=== PATIENT | male | born 1970 | race Caucasian/White ===

== ENCOUNTER 2016-11-12 06:48 | Observation (INO) | payer OTHER ==
[~2016-11-12] VITALS: Ht 198.1 cm; Wt 187.7 kg
[~2016-11-12 06:48] MED LIST: BACITRACIN 50,000 UNIT ONE; BUPIVACAINE/PF 0.25% ONE; BUPIVACAINE/PF-EPI 0.25% 1:200K ONE; THROMBIN 5,000 UNIT VIAL TP ONE
[2016-11-12 07:46] VITALS: BP 135/85
[2016-11-12] MEDS ORDERED: METF500T4 PO (08:01)
[2016-11-12] MEDS ORDERED: HYDR-3307 PO (08:01)
[2016-11-12] MEDS ORDERED: LISI40TA PO (08:01)
[2016-11-12] MEDS ORDERED: LIDOCAINE 1%, 2ML ONE (08:06)
[2016-11-12] MEDS ORDERED: MIDAZOLAM 1 MG/ML, 2ML ONE (09:11)
[2016-11-12] MEDS ORDERED: FENTANYL PF 250 MCG/5ML ONE (09:11)
[2016-11-12] MEDS ORDERED: ROCURONIUM 10 MG/ML ONE (10:20)
[2016-11-12] MEDS ORDERED: DEXAMETHASONE 4 MG/ML, 1ML ONE (10:20)
[2016-11-12] MEDS ORDERED: ONDANSETRON 2MG/ML, 2ML ONE (10:20)
[2016-11-12] MEDS ORDERED: PROPOFOL 10 MG/ML, 20ML ONE (10:20)
[2016-11-12] MEDS ORDERED: CEFAZOLIN 1,000 MG ONE (10:20)
[2016-11-12] MEDS ORDERED: SUCCINYLCHOLINE 20 MG/ML, 10ML ONE (10:20)
[2016-11-12] MEDS ORDERED: FENTANYL PF 100 MCG/2ML ONE ×2 (11:32→12:41)
[2016-11-12] MEDS ORDERED: FENTANYL PF 100 MCG/2ML EPIDPUSH ONE (11:34)
[2016-11-12] MEDS ORDERED: BUPIVACAINE/PF 0.25% EPIDPUSH ONE (11:36)
[2016-11-12] MEDS ORDERED: NS + 20MEQ KCL 1,000 ML IV SCH (12:30)
[2016-11-12] MEDS ORDERED: ONDANSETRON 2MG/ML, 2ML IVPush PRN ×3 (12:30→13:00)
[2016-11-12] MEDS ORDERED: HYDROcodone/APAP 10/325 MG TABLET PO PRN (12:30)
[2016-11-12] MEDS ORDERED: BISACODYL 10 MG SUPP PR PRN (12:30)
[2016-11-12] MEDS ORDERED: DIPHENHYDRAMINE 50 MG/ML, 1ML IVPush PRN (12:30)
[2016-11-12] MEDS ORDERED: METHOCARBAMOL 750 MG TABLET PO PRN (12:30)
[2016-11-12] MEDS ORDERED: PHARMACY MAY ADJ FOR RENAL FX MC PRN (12:30)
[2016-11-12] MEDS ORDERED: HYDROcodone/APAP 5/325 TABLET PO PRN (12:30)
[2016-11-12] MEDS ORDERED: SENNA/DOCUSATE TABLET PO PRN (12:30)
[2016-11-12] MEDS ORDERED: PROMETHAZINE 25 MG/ML, 1ML IM PRN (12:30)
[2016-11-12] MEDS ORDERED: HYDROmorphone 2 MG/ML, 1ML ONE (12:41)
[2016-11-12] MEDS ORDERED: ACETAMINOPHEN 650 MG/20.3 ML UDC ONE (12:41)
[2016-11-12] MEDS ORDERED: OXYcodone 5 MG/5 ML ORAL.SOL UDC ONE (12:42)
[2016-11-12] MEDS ORDERED: METOCLOPRAMIDE 5 MG/ML, 2ML IV PRN (13:00)
[2016-11-12] MEDS ORDERED: HYDROmorphone 1 MG/ML, 1ML IV PRN ×2 (13:00)
[2016-11-12] MEDS ORDERED: hydrALAzine 20 MG/ML, 1ML IV PRN ×2 (13:00)
[2016-11-12] MEDS ORDERED: ACETAMINOPHEN 325 MG TABLET PO PRN ×2 (13:00)
[2016-11-12] MEDS ORDERED: LABETALOL 5MG/ML, 20ML IV PRN (13:00)
[2016-11-12] MEDS ORDERED: LABETALOL 20 MG/4 ML IV PRN (13:00)
[2016-11-12] MEDS ORDERED: OXYcodone 5 MG/5 ML ORAL.SOL UDC PO PRN ×2 (13:00)
[2016-11-12] MEDS ORDERED: PLEASE ENTER ALLERGIES MC SCH ×2 (13:00)
[2016-11-12] MEDS ORDERED: FENTANYL PF 100 MCG/2ML IV PRN ×2 (13:00)
[2016-11-12] MEDS: CYCLOBENZAPRINE 10 MG TABLET PO PRN ×2 (14:43→23:12)
[2016-11-12] MEDS: morphine SULFATE 10 MG/ML, 1ML IVPush PRN ×2 (15:16→15:50)
[2016-11-12] MEDS: OXYcodone/APAP 5/325MG TABLET PO PRN ×2 (16:35→20:40)
[2016-11-12] MEDS: CEFAZOLIN PMX 1GM/50ML 50 ML IVPB SCH (18:40)
[2016-11-12 19:05] VITALS: BP 95/43
[2016-11-12] MEDS ORDERED: SODIUM CHLORIDE FLUSH 10ML SYR IVF SCH (21:00)
[2016-11-13 00:03] VITALS: BP 116/76
[2016-11-13] MEDS: OXYcodone/APAP 5/325MG TABLET PO PRN ×3 (00:36→09:03)
[2016-11-13] MEDS: CEFAZOLIN PMX 1GM/50ML 50 ML IVPB SCH (02:20)
[2016-11-13 04:00] VITALS: BP 124/71
[2016-11-13 06:32] VITALS: BP 106/70
[2016-11-13] MEDS ORDERED: CYCL5TAB PO (08:54)
[2016-11-13] MEDS ORDERED: CEPH-368 PO (08:55)
[2016-11-13] MEDS ORDERED: LISINOPRIL 20 MG TABLET PO SCH (09:00)
[2016-11-13] MEDS ORDERED: metFORMIN 500 MG TABLET PO SCH (09:00)
[2016-11-13] MEDS: CYCLOBENZAPRINE 10 MG TABLET PO PRN (09:03)
[2016-11-13] MEDS: morphine SULFATE 10 MG/ML, 1ML IVPush PRN (09:04)
== END 2016-11-13 09:40 | disposition home or self-care (01) ==
LOC: OUT 06:48 → 4NOR 13:40 → OUT 23:04 → 4NOR 23:04
PROVIDERS: ADMIT Neurological Surgery; ATTEND Neurological Surgery
DX: M51.16 Intervertebral disc disorders with radiculopathy, lumbar region (principal); E66.01 Morbid (severe) obesity due to excess calories; M48.00 Spinal stenosis, site unspecified; Z68.42 Body mass index [BMI] 45.0-49.9, adult
CPT/HCPCS: 63030; 63035; 72100; 82962; 96365; 96375; 96376; C1751; G0378; J0330; J0690; J1100; J1170; J2250; J2270; J2405; J2704; J3010; J3490

== ENCOUNTER 2019-07-27 09:58 | Inpatient (IN) | payer BC ==
[~2019-07-27] VITALS: Ht 198.1 cm; Wt 163.0 kg
[~2019-07-27 09:58] MED LIST changes: +BUPIVACAINE 0.25% ONE; -BUPIVACAINE/PF 0.25% ONE; +BUPIVACAINE/PF 0.5% ONE; -BUPIVACAINE/PF-EPI 0.25% 1:200K ONE; +CEPH-368 PO; +CYCL5TAB PO; +EPINEPHRINE 1 MG/ML, 1ML ONE; +HYDR-36 PO; +LISI40TA PO; +METF500T17 PO; -THROMBIN 5,000 UNIT VIAL TP ONE; +VANCOMYCIN 1,000 MG ONE
[2019-07-27] MEDS ORDERED: LACTATED RINGERS 1,000 ML IV SCH (10:33)
[2019-07-27] MEDS ORDERED: SCOPOLAMINE PATCH, 1.5MG PATCH.TD72 TD ONE (11:00)
[2019-07-27] MEDS ORDERED: GABAPENTIN 300 MG CAPSULE PO ONE (11:00)
[2019-07-27] MEDS ORDERED: ACETAMINOPHEN 500 MG TABLET PO ONE (11:00)
[2019-07-27] MEDS ORDERED: MIDAZOLAM 1 MG/ML, 2ML ONE (11:10)
[2019-07-27] MEDS ORDERED: FENTANYL PF 250 MCG/5ML ONE ×2 (11:11→13:21)
[2019-07-27] MEDS ORDERED: PROPOFOL 10 MG/ML, 20ML ONE (12:37)
[2019-07-27] MEDS ORDERED: CEFAZOLIN 1,000 MG ONE (12:37)
[2019-07-27] MEDS ORDERED: SUCCINYLCHOLINE 20 MG/ML, 10ML ONE (12:37)
[2019-07-27] MEDS ORDERED: ROCURONIUM 10MG/ML,5ML ONE (12:37)
[2019-07-27] MEDS ORDERED: ONDANSETRON 2MG/ML, 2ML ONE (12:37)
[2019-07-27] MEDS ORDERED: KETAMINE 10 MG/ML, 20ML ONE (13:21)
[2019-07-27] MEDS ORDERED: BUPIVACAINE LIPOSOME/PF 10ML INFIL ONE (13:26)
[2019-07-27] MEDS ORDERED: ONDANSETRON 2MG/ML, 2ML IVPush PRN (13:30)
[2019-07-27] MEDS ORDERED: METOCLOPRAMIDE 5 MG/ML, 2ML IV PRN (13:30)
[2019-07-27] MEDS ORDERED: OXYcodone 5 MG/5 ML ORAL.SOL UDC PO PRN (13:30)
[2019-07-27] MEDS ORDERED: LABETALOL 5MG/ML, 20ML IV PRN ×2 (13:30→17:30)
[2019-07-27] MEDS ORDERED: KETOROLAC 30 MG/1 ML IV PRN (13:30)
[2019-07-27] MEDS ORDERED: HYDROmorphone 1 MG/ML, 1ML INJ IV PRN (13:30)
[2019-07-27] MEDS ORDERED: DIAZEPAM 5 MG/ML, 2ML IV PRN ×2 (13:30)
[2019-07-27] MEDS ORDERED: FENTANYL PF 100 MCG/2ML IV PRN (13:30)
[2019-07-27] MEDS ORDERED: ALBUTEROL SULFATE 2.5 MG/3 ML NPPB PRN (13:30)
[2019-07-27] MEDS ORDERED: hydrALAzine 20 MG/ML, 1ML IV PRN (13:30)
[2019-07-27] MEDS ORDERED: MEPERIDINE/PF 25MG/0.5ML IVPush PRN (13:30)
[2019-07-27] MEDS ORDERED: PROMETHAZINE 25 MG/ML, 1ML IV PRN (13:30)
[2019-07-27] MEDS ORDERED: FENTANYL PF 100 MCG/2ML ONE ×2 (14:10→15:06)
[2019-07-27] MEDS ORDERED: FENTANYL PF 100 MCG/2ML EPIDPUSH ONE (14:13)
[2019-07-27] MEDS ORDERED: BUPIVACAINE/PF 0.25% EPIDPUSH ONE (14:13)
[2019-07-27] MEDS ORDERED: DIAZEPAM 5 MG/ML, 2ML ONE (15:06)
[2019-07-27] MEDS ORDERED: OXYcodone 5 MG/5 ML ORAL.SOL UDC ONE (15:07)
[2019-07-27] MEDS ORDERED: DIAZEPAM 5 MG/ML, 2ML IVPush PRN (15:30)
[2019-07-27] MEDS ORDERED: MAGNESIUM HYDROXIDE 8%, 30ML UDC PO PRN (17:30)
[2019-07-27] MEDS ORDERED: BISACODYL 10 MG SUPP PR PRN (17:30)
[2019-07-27] MEDS: METHOCARBAMOL 1,000 MG in DEXTROSE 5% 100 ML IV ONE ×2 (17:30→22:18)
[2019-07-27] MEDS ORDERED: METHOCARBAMOL 750 MG TABLET PO PRN (17:30)
[2019-07-27] MEDS: NS + 20MEQ KCL 1,000 ML IV SCH (17:30)
[2019-07-27] MEDS ORDERED: PROMETHAZINE 25 MG/ML, 1ML IM PRN (17:30)
[2019-07-27] MEDS ORDERED: DIPHENHYDRAMINE 50 MG/ML, 1ML IVPush PRN (17:30)
[2019-07-27] MEDS ORDERED: ONDANSETRON 2MG/ML, 2ML IV PRN (17:30)
[2019-07-27] MEDS ORDERED: DIPHENHYDRAMINE 50 MG/ML, 1ML IM PRN (17:30)
[2019-07-27] MEDS ORDERED: DIPHENHYDRAMINE 25 MG CAPSULE PO PRN (17:30)
[2019-07-27] MEDS ORDERED: HYDROcodone/APAP 5/325 TABLET PO PRN (17:30)
[2019-07-27] MEDS: OXYcodone IR 5MG TABLET PO PRN ×2 (18:04→21:08)
[2019-07-27 19:53] VITALS: BP 114/70
[2019-07-27] MEDS: CEFAZOLIN PMX 1GM/50ML 50 ML IVPB SCH (20:35)
[2019-07-27] MEDS: metFORMIN 500 MG TABLET PO SCH (20:35)
[2019-07-27] MEDS: INSULIN REGULAR 100 UNITS/ML, 3ML VIAL SQ-INSULIN SCH (20:36)
[2019-07-27] MEDS: morphine SULFATE 10 MG/ML, 1ML IV PRN (21:16)
[2019-07-28] MEDS: morphine SULFATE 10 MG/ML, 1ML IV PRN (00:15)
[2019-07-28] MEDS: OXYcodone IR 5MG TABLET PO PRN ×4 (00:16→12:02)
[2019-07-28 00:28] VITALS: BP 117/70
[2019-07-28] MEDS: NS + 20MEQ KCL 1,000 ML IV SCH (03:30)
[2019-07-28 03:55] VITALS: BP 87/53
[2019-07-28] MEDS: CEFAZOLIN PMX 1GM/50ML 50 ML IVPB SCH (04:40)
[2019-07-28 06:47] LABS: ANION GAP 5 mmol/L (5-15); CALCIUM 7.8 mg/dL (8.5-10.1); CHLORIDE 103 mmol/L (98-107); CREATININE 1.66 mg/dL (0.7-1.3)
[2019-07-28 06:55] LABS: BASOPHILS # (AUTO) 0.01 x10^3/uL (0-0.1); BASOPHILS % (AUTO) 0 % (0-1); EOSINOPHILS # (AUTO) 0.02 x10^3/uL (0-0.4); EOSINOPHILS % (AUTO) 0 % (1-7); LYMPHOCYTES # (AUTO) 0.82 x10^3/uL (1-3.4); LYMPHOCYTES % (AUTO) 7 % (22-44); MD NO; MEAN CORPUSCULAR HEMOGLOBIN 34.8 pg (27.5-34.5); MEAN CORPUSCULAR HGB CONC 33.1 g/dL (33.2-36.2); MEAN PLATELET VOLUME 8.1 fL (7.4-10.4); MONOCYTES # (AUTO) 0.81 x10^3/uL (0.2-0.8); MONOCYTES % (AUTO) 7 % (2-9); NEUTROPHILS # (AUTO) 9.89 x10^3/uL (1.8-6.8); NEUTROPHILS % (AUTO) 86 % (42-75); PLATELET COUNT 177 x10^3/uL (130-400); RED BLOOD COUNT 3.57 x10^6/uL (4.38-5.82); RED CELL DISTRIBUTION WIDTH 12.7 % (9.4-14.8)
[2019-07-28] MEDS: INSULIN REGULAR 100 UNITS/ML, 3ML VIAL SQ-INSULIN SCH ×2 (07:00→11:00)
[2019-07-28] MEDS: metFORMIN 500 MG TABLET PO SCH (08:09)
[2019-07-28 08:19] VITALS: BP 101/64
[2019-07-28] MEDS ORDERED: GABAPENTIN 300 MG CAPSULE PO SCH (09:00)
[2019-07-28] MEDS ORDERED: SENNA/DOCUSATE TABLET PO SCH (09:00)
[2019-07-28] MEDS ORDERED: LISINOPRIL 20 MG TABLET PO SCH (09:00)
[2019-07-28] MEDS ORDERED: CYCLOBENZAPRINE 10 MG TABLET PO PRN (09:00)
[2019-07-28] MEDS ORDERED: OXYC5CAP2 PO (09:48)
[2019-07-28] MEDS ORDERED: CYCL5TAB PO (09:49)
[2019-07-28] MEDS ORDERED: GABA300C PO (09:50)
[2019-07-28] MEDS ORDERED: CEPH-368 PO (09:51)
[2019-07-28 13:29] VITALS: BP 91/55
== END 2019-07-28 14:11 | disposition home or self-care (01) | DRG 516 ==
LOC: OUT 09:58 → 4NE 16:05 → OUT 16:19 → DCLOUNGE 07-28 14:05
PROVIDERS: ADMIT Neurological Surgery; ATTEND Neurological Surgery
PROC: 4A11X4G Monitoring of Peripheral Nervous Electrical Activity, Intraoperative, External Approach (ICD-10-PCS; 2019-07-27)
PROC: 01NB0ZZ Release Lumbar Nerve, Open Approach (ICD-10-PCS; principal; 2019-07-27 13:00)
DX: M48.062 Spinal stenosis, lumbar region with neurogenic claudication (principal); Z68.41 Body mass index [BMI] 40.0-44.9, adult; E66.01 Morbid (severe) obesity due to excess calories; M21.379 Foot drop, unspecified foot; M47.26 Other spondylosis with radiculopathy, lumbar region; M51.16 Intervertebral disc disorders with radiculopathy, lumbar region
CPT/HCPCS: 36415; 72100; S0020; 80048; 82962; 85025; G0378; J0171; J0690; J2250; J2405; J2704; J3010; J3360; J3370; J3480; J3490; C1760; J0330; J2270; J2800; J7120